=== PATIENT | female | born 1970 | race Caucasian/White ===

== ENCOUNTER 2018-06-07 10:59 | Emergency (ER) | payer MEDICARE, MEDICAID ==
[~2018-06-07] VITALS: Ht 172.7 cm; Wt 72.7 kg
[2018-06-07 11:06] VITALS: Ht 172.7 cm; Wt 72.7 kg
[2018-06-07] MEDS ORDERED: TOPAMAX50 MG (11:07)
[2018-06-07] MEDS ORDERED: BUSPAR 15 MG TA15 MG PO (11:07)
[2018-06-07 11:52] LABS: APPEARANCE CLEAR (CLEAR); BILIRUBIN NEGATIVE (NEGATIVE); COLOR YELLOW (YELLOW); GLUCOSE NEGATIVE (NEGATIVE); KETONE NEGATIVE (NEGATIVE); NITRITE NEGATIVE (NEGATIVE); PROTEIN NEGATIVE (NEGATIVE); SPECIFIC GRAVITY 1.005 (1.005-1.020); UROBILINOGEN NORMAL (NORMAL)
[2018-06-07 11:54] LABS: BACTERIA MODERATE /hpf (NONE SEEN); EPITHELIAL CELLS 0-5 /hpf (0-5); RED CELLS - URINE 0-5 /hpf (0-5); WHITE CELLS - URINE 0-5 /hpf (0-5)
[2018-06-07] MEDS ORDERED: ULTRAM50 MG PO (12:04)
[2018-06-07] MEDS ORDERED: BACTRIM DS1 TAB PO (12:04)
[2018-06-07 12:15] VITALS: BP 130/80
== END 2018-06-07 12:16 | disposition home or self-care (01) ==
LOC: D.ER 10:59
PROVIDERS: Family Medicine
DX: M54.5 Low back pain (principal); M79.18 Myalgia, other site; N39.0 Urinary tract infection, site not specified; F17.200 Nicotine dependence, unspecified, uncomplicated

== ENCOUNTER 2021-01-29 16:01 | Emergency (ER) | payer MEDICARE, MEDICAID ==
[~2021-01-29] VITALS: Ht 172.7 cm; Wt 77.3 kg
[~2021-01-29 16:01] MED LIST: BACTRIM DS1 TAB PO; BUSPAR 15 MG TA15 MG PO; TOPAMAX50 MG; ULTRAM50 MG PO
[2021-01-29 16:11] VITALS: BP 114/75; Ht 172.7 cm; Wt 77.3 kg
[2021-01-29 16:44] LABS: BASOPHILS 0.4 % (0-2); EOSINOPHILS 0.2 % (0-7); HEMATOCRIT 40.1 % (36.0-48.0); HEMOGLOBIN 13.3 g/dL (12-16); LYMPHOCYTES 26.6 % (15-50); MCHC 33.2 g/dL (31.0-37.0); MCV 87.1 fL (80.0-100.0); MEAN PLATELET VOLUME 7.8 fL (7.4-10.4); MONOCYTES 4.1 % (2-11); NEUTROPHILS 68.7 % (40-80); PLATELET COUNT 147 10x3/uL (130-400); RBC 4.61 10x6/uL (4.00-5.40); RDW 13.7 % (11.5-14.5); WBC 3.8 10x3/uL (4.8-10.8)
[2021-01-29 16:52] LABS: CALC OSMOLALITY 280 mosm/kg (275-300); CALCIUM 8.2 mg/dL (8.5-10.1); CARBON DIOXIDE 32.9 mmol/L (21.0-32.0); CHLORIDE - SERUM 104 mmol/L (98-107); CREATININE - SERUM 0.7 mg/dL (0.6-1.3); GLUCOSE 122 mg/dL (74-106); POTASSIUM - SERUM 3.6 mmol/L (3.5-5.1); SODIUM 141 mmol/L (136-145); UREA NITROGEN 11 mg/dL (7-18); eGFR NON AFRICAN AMERICAN > 90 mL/min (90-120)
[2021-01-29 16:58] LABS: ALBUMIN 3.5 g/dL (3.4-5.0); ALKALINE PHOSPHATASE 80 U/L (30-120); ALT (SGPT) 42 U/L (10-68); BILIRUBIN - TOTAL 0.49 mg/dL (0.2-1.3); PROTEIN - SERUM 6.5 g/dL (6.4-8.2)
[2021-01-29] MEDS ORDERED: ALBUTEROL SULF8.5 GM INH (17:02)
[2021-01-29 17:56] LABS: INFLUENZA TYPE A NEGATIVE (NEGATIVE); INFLUENZA TYPE B NEGATIVE (NEGATIVE)
[2021-01-29 17:57] LABS: SARS-CoV-2 ANTIGEN POSITIVE- SARS-COV-2 (NEGATIVE)
[2021-01-29] MEDS ORDERED: ZPAK PO (18:13)
== END 2021-01-29 18:20 | disposition home or self-care (01) ==
LOC: D.ER 16:01
PROVIDERS: Family Medicine
DX: U07.1 COVID-19 (principal); D72.819 Decreased white blood cell count, unspecified; M79.10 Myalgia, unspecified site; J06.9 Acute upper respiratory infection, unspecified; Z72.0 Tobacco use; R50.9 Fever, unspecified